=== PATIENT | female | born 1995 | race Caucasian/White ===

== ENCOUNTER 2018-06-02 20:58 | Emergency (ER) | payer OTHER ==
[2018-06-02 21:10] VITALS: TEMP 98.2
[2018-06-02] MEDS ORDERED: SODIUM CHLORIDE 0.9% 1,000 ML IV STA (21:56)
--- NOTE | 2018-06-02 21:57 | ED ---
General Adult HPI - General Chief complaint: Alcohol Stated complaint: Syncope Time Seen by Provider: 06/02/18 21:56 Source: patient, EMS Mode of arrival: ambulatory Limitations: no limitations - History of Present Illness Initial comments: Bo a previously healthy 23-year-old female was brought to the ED today for evaluation of a near syncopal episode. Patient reports that she was at a wedding this evening, she states that she had a couple of alcoholic drinks but had been eating and drinking well throughout the day. She states that she started to feel somewhat lightheaded and told her significant other that she wanted to go outside to get some fresh air. Upon standing she reports that she became very lightheaded and her vision began to darken. Her significant other states that she then began to appear to slump over so he grabbed her underarms and Easter to the ground. She didn't have any seizure-like activity. She was immediately awake alert and oriented. He became very concerned and brought her to the ER for evaluation. Patient reports that she has no history of passing out. She has no known cardiac history, no family history of sudden cardiac or arrhythmias. No history of DVTs or PEs. She is not on any estrogen. She's had no recent unilateral leg swelling or long distance travel. She reports that prior to obtaining the wedding she was in her usual state of health with no complaints. - Related Data Home Medications Medication Instructions Recorded Confirmed Ibuprofen [Motrin Ib] 600 mg PO Q6H PRN 06/02/18 06/02/18 Venlafaxine HCl ER [Effexor Xr] 75 mg PO DAILY 06/02/18 06/02/18 Allergies Allergy/AdvReac Type Severity Reaction Status Date / Time codeine Allergy Anaphylaxis Verified 06/02/18 22:07 Review of Systems ROS Statement: Those systems with pertinent positive or pertinent negative responses have been documented in the HPI. ROS Other: All systems not noted in ROS Statement are negative. Past Medical History Past Medical History: No Reported History History of Any Multi-Drug Resistant Organisms: None Reported Past Surgical History: Tonsillectomy Additional Past Surgical History / Comment(s): left hip Past Psychological History: PTSD Smoking Status: Never smoker Past Alcohol Use History: Daily Past Drug Use History: Marijuana General Exam - General Exam Comments Initial Comments: Physical Exam GENERAL: Patient is well-developed and well-nourished. Patient is nontoxic and in no acute distress Patient appears mildly dehydrated HENT: Normocephalic, Atraumatic. EYES: PERRL, EOMI PULMONARY: Unlabored respirations. No audible rales rhonchi or wheezing was noted. CARDIOVASCULAR: There is a regular rate and rhythm without any murmurs gallops or rubs. ABDOMEN: Soft and nontender with normal bowel sounds. SKIN: Skin is clear with no lesions or rashes and otherwise unremarkable. : Deferred NEUROLOGIC: Patient is alert and oriented x3. Moving all extremities spontaneously MUSCULOSKELETAL: Normal extremities with adequate strength and full range of motion. No lower extremity swelling or edema. No calf tenderness. PSYCHIATRIC: Normal psychiatric evaluation. Limitations: no limitations Limitations: no limitations Course Vital Signs 06/02/18 06/02/18 06/02/18 21:05 21:06 22:00 Temperature 98.2 F Pulse Rate 100 Respiratory 20 Rate Blood Pressure 110/79 110/79 O2 Sat by Pulse 97 82 L 98 Oximetry 06/02/18 06/03/18 23:00 00:21 Temperature Pulse Rate 88 Respiratory 16 Rate Blood Pressure 110/79 95/68 O2 Sat by Pulse 99 100 Oximetry EKG Findings - EKG Comments: EKG Findings:: EKG was obtained at 10:21 PM. Rate is 80, rhythm is sinus, there is a normal axis, there are normal intervals. There are T-wave inversions in the lateral leads, this is likely a persistent pediatric pattern. No ST elevations or depressions. Medical Decision Making - Medical Decision Making Patient was seen and evaluated history was obtained from the patient and significant other at bedside As a young healthy 23-year-old female who reports having alcohol and then becoming lightheaded, she appears to have had a near syncopal or syncopal event but was eased to the ground by her significant other, did not have a fall, did not have any injuries. She's been feeling fine since then. IV fluids will be ordered EKG with no acute findings Patient received 1 L IV fluid bolus, patient was reevaluated, was resting comfortably. Was eager for discharge. Patient had no symptoms of orthostatic hypotension. Patient was able to stand and dress herself. Return parameters discussed. Patient discharged home in stable care. Disposition Clinical Impression: Near syncope Disposition: HOME SELF-CARE Condition: Good Instructions: Alcohol Intoxication (ED) Is patient prescribed a controlled substance at d/c from ED?: No Referrals: None,Stated [Primary Care Provider] - 1-2 days
[2018-06-03 00:22] VITALS: BP 95/68; PULSE 88; RESP 16
--- NOTE | 2018-06-04 22:48 | OP ---
OPERATIVE REPORT PREOPERATIVE DIAGNOSIS: Chronic renal failure. PROCEDURE: Removal of old catheter and placement of a 23 cm dialysis catheter, right internal jugular approach. SEDATION TIME: 25 minutes. DESCRIPTION OF PROCEDURE: The patient was brought to the hot plate plywood press laborer. Right side of the neck and chest were prepped and draped in sterile manner. The neck was prepped and drapes were applied. After that, a small incision was made in the neck and the catheter was exposed and was divided. Glidewire was passed which was parked in the inferior vena cava. A new tunnel was created. Through that we brought 23 cm straight dialysis catheter. Sheath was advanced on the top of the guidewire. Through the sheath we introduced the dialysis catheter in superior vena cava and atrial junction. It was flushed with heparin saline and hep-locked. This was secured with 3-0 Vicryl and nylon. Dressing applied. The patient tolerated the procedure well. Old catheter was removed. MMODL / IJN: [id number] /
== END 2018-06-03 00:30 | disposition home or self-care (01) ==
LOC: EC 20:58
DX: R55 Syncope and collapse (principal); Z88.5 Allergy status to narcotic agent; Z79.899 Other long term (current) drug therapy
CPT/HCPCS: 93005; 96360; 96361; 99284